=== PATIENT | female | born 1970 | race Caucasian/White ===

== ENCOUNTER 2019-09-07 | Emergency (ER) | payer MEDICARE ==
[2019-09-07] MEDS ORDERED: ADVAIR DISK1 INH (14:01)
[2019-09-07] MEDS ORDERED: PROAIR HFA108 MCG/AC IN (14:02)
[2019-09-07 14:53] LABS: URINE BILIRUBIN - DIPSTICK NEGATIVE (NEGATIVE); URINE BLOOD DIPSTICK NEGATIVE (NEGATIVE); URINE COLOR YELLOW; URINE GLUCOSE - DIPSTICK NEGATIVE (NEGATIVE); URINE KETONE NEGATIVE (NEGATIVE); URINE LEUK ESTERASE NEGATIVE (NEGATIVE); URINE NITRITE - DIPSTICK NEGATIVE (Negative); URINE PROTEIN - DIPSTICK NEGATIVE (NEG-TRACE); URINE SPECIFIC GRAVITY 1.015; URINE UROBILINOGEN - DIPSTICK 0.2 E.U./dL (0.2)
[2019-09-07] MEDS ORDERED: AMOX/K CLAV875 M1 PO (15:27)
== END 2019-09-07 15:59 | disposition home or self-care (01) ==
DX: J32.9 Chronic sinusitis, unspecified (principal); R39.15 Urgency of urination